=== PATIENT | male | born 1985 | race Caucasian/White ===

== ENCOUNTER 2023-10-03 08:21 | Emergency (ER) | payer MEDICAID ==
[~2023-10-03] VITALS: Ht 172.7 cm; Wt 73.0 kg
[2023-10-03 08:25] VITALS: O2SAT 98
[2023-10-03] MEDS: TETRACAINE 0.5% OPHTH DROPS 4ML LEFTEYE ONE (13:42)
[2023-10-03] MEDS: FLUORESCEIN SODIUM 1MG/STRIP LEFTEYE ONE (13:42)
[2023-10-03] MEDS ORDERED: CEPH500C2 MT (15:08)
[2023-10-03] MEDS ORDERED: VALA100044 MT (15:08)
[2023-10-03 15:30] VITALS: BP 129/86; PULSE 75; RESP 16; TEMP 98.6
== END 2023-10-03 18:29 | disposition home or self-care (01) ==
LOC: ER 08:21
DX: J34.0 Abscess, furuncle and carbuncle of nose (principal); R50.9 Fever, unspecified
CPT/HCPCS: 99282